=== PATIENT | male | born 1995 | race African-American/Black ===

== ENCOUNTER 2018-05-02 20:00 | Emergency (ER) | payer SELFPAY ==
[~2018-05-02] VITALS: Ht 170.2 cm; Wt 77.0 kg
[2018-05-02 21:08] VITALS: BP 130/82
== END 2018-05-02 21:40 | disposition left against medical advice (07) ==
LOC: ER 20:00
DX: R10.9 Unspecified abdominal pain (principal); M79.10 Myalgia, unspecified site; Z53.21 Procedure and treatment not carried out due to patient leaving prior to being seen by health care provider